=== PATIENT | male | born 1950 | race Caucasian/White ===

== ENCOUNTER → 2017-10-14 22:08 | Emergency (ER) | payer MEDICARE, OTHER ==
[2017-10-14 19:08] LABS: ADD MAN DIFF? NO
[2017-10-14 19:10] LABS: BASOPHIL # 0.1 10^3/ul (0.0-0.1); BASOPHILS % 0.6 % (0.0-2.0); EOSINOPHILS # 0.4 10^3/ul (0.0-0.5); EOSINOPHILS % 3.9 % (0.0-7.0); HEMATOCRIT 41.2 % (42.0-52.0); HEMOGLOBIN 14.3 g/dl (14.0-18.0); LYMPHOCYTES # 2.3 10^3/ul (0.8-2.9); LYMPHOCYTES % 24.8 % (15.0-51.0); MEAN CORPUSCULAR HEMOGLOBIN 33.2 pg (29.0-33.0); MEAN CORPUSCULAR HGB CONC 34.7 g/dl (32.0-37.0); MEAN CORPUSCULAR VOLUME 95.6 fl (82.0-101.0); MEAN PLATELET VOLUME 9.6 fl (7.4-10.4); MONOCYTE # 0.9 10^3/ul (0.3-0.9); NEUTROPHIL # 5.7 10^3/ul (1.6-7.5); NEUTROPHILS % 60.4 % (39.0-77.0); PLATELET COUNT 281 10^3/UL (140-415); RED BLOOD COUNT 4.31 10^6/ul (4.70-6.10)
[2017-10-14 19:10] LABS: WHITE BLOOD COUNT 9.4 10^3/ul (4.8-10.8)
[2017-10-14] MEDS: ONDANSETRON 4 MG INJ IV (19:26)
[2017-10-14] MEDS: LACTATED RINGER'S 1,000 ML IV (19:26)
[2017-10-14 19:37] LABS: ALANINE AMINOTRANSFERASE 26 IU/L (13-69); ALBUMIN 4.3 g/dl (3.3-4.9); ALBUMIN/GLOBULIN RATIO 1.43; ALKALINE PHOSPHATASE 57 IU/L (42-121); ANION GAP 11 (8-16); ASPARTATE AMINO TRANSFERASE 26 IU/L (15-46); BILIRUBIN,INDIRECT 0.7 mg/dl (0-1.1); BILIRUBIN,TOTAL 0.7 mg/dl (0.2-1.3); BLOOD UREA NITROGEN 16 mg/dl (7-20); CALCIUM 9.7 mg/dl (8.4-10.2); CARBON DIOXIDE 26 mmol/L (21-31); CHLORIDE 107 mmol/L (97-110); CREATININE 1.03 mg/dl (0.61-1.24); GLUCOSE 119 mg/dl (70-220); POTASSIUM 3.3 mmol/L (3.5-5.1); SODIUM 141 mmol/L (135-144); TOTAL PROTEIN 7.3 g/dl (6.1-8.1)
[2017-10-14 22:06] LABS: HEMOGLOBIN A1C 5.6 % (0-5.9)
[~2017-10-14 22:08] MED LIST: ACETAMINOPHEN 650 MG SUPP PR; ALBUTEROL/IPRATROPIUM (NEB) 3 ML AMP NEB; FAMOTIDINE 20 MG INJ IV; ONDANSETRON 4 MG INJ IV; POTASSIUM CHLORIDE 100 ML IVPB
== END | disposition left against medical advice (07) ==
DX: I61.8 Other nontraumatic intracerebral hemorrhage (principal); F17.210 Nicotine dependence, cigarettes, uncomplicated
CPT/HCPCS: 36415; 70553; 80053; 83036; 85025; 96374; 99284-25

== ENCOUNTER 2017-10-16 10:32 | Inpatient (IN) | payer MEDICARE, OTHER ==
[2017-10-16 11:29] LABS: WHITE BLOOD COUNT 9.2 10^3/ul (4.8-10.8)
[2017-10-16 11:29] LABS: ADD MAN DIFF? NO; HEMATOCRIT 42.2 % (42.0-52.0); HEMOGLOBIN 14.6 g/dl (14.0-18.0); MEAN CORPUSCULAR VOLUME 95.7 fl (82.0-101.0); RED BLOOD COUNT 4.41 10^6/ul (4.70-6.10)
[2017-10-16 11:30] LABS: BASOPHIL # 0.1 10^3/ul (0.0-0.1); BASOPHILS % 0.5 % (0.0-2.0); EOSINOPHILS # 0.3 10^3/ul (0.0-0.5); LYMPHOCYTES # 2.4 10^3/ul (0.8-2.9); LYMPHOCYTES % 26.4 % (15.0-51.0); MEAN CORPUSCULAR HEMOGLOBIN 33.1 pg (29.0-33.0); MEAN CORPUSCULAR HGB CONC 34.6 g/dl (32.0-37.0); MEAN PLATELET VOLUME 9.8 fl (7.4-10.4); MONOCYTE # 0.9 10^3/ul (0.3-0.9); MONOCYTES % 9.3 % (0.0-11.0); NEUTROPHIL # 5.6 10^3/ul (1.6-7.5); NEUTROPHILS % 60.6 % (39.0-77.0); PLATELET COUNT 280 10^3/UL (140-415); RED CELL DISTRIBUTION WIDTH 12.8 % (11.5-14.5)
[2017-10-16 11:48] LABS: ANION GAP 9 (8-16); BLOOD UREA NITROGEN 14 mg/dl (7-20); CALCIUM 9.5 mg/dl (8.4-10.2); CARBON DIOXIDE 28 mmol/L (21-31); CHLORIDE 107 mmol/L (97-110); CREATININE 0.79 mg/dl (0.61-1.24); GLUCOSE 86 mg/dl (70-220); POTASSIUM 3.9 mmol/L (3.5-5.1); SODIUM 140 mmol/L (135-144)
[2017-10-16 11:53] LABS: INR 0.97; PARTIAL THROMBOPLASTIN TIME 27.5 Sec (25.0-35.0)
[2017-10-16] MEDS ORDERED: ONDANSETRON 4 MG INJ IV ×2 (13:30→18:00)
[2017-10-16] MEDS: ACETAMINOPHEN 325 MG TAB PO ×2 (15:05→21:56)
[2017-10-16] MEDS ORDERED: NACL 0.9% 3 ML SYG IV (18:00)
[2017-10-16] MEDS ORDERED: morphine 2 MG INJ IV (18:00)
[2017-10-16] MEDS ORDERED: HYDROCODONE/APAP (5/325) TAB PO (18:00)
[2017-10-16] MEDS ORDERED: ZOLPIDEM 5 MG TAB PO (18:00)
[2017-10-16] MEDS ORDERED: DOCUSATE SODIUM 100 MG CAP PO (18:00)
[2017-10-16] MEDS: SOD CHLORIDE 0.9% 100 ML (20:28)
[2017-10-16] MEDS: IOHEXOL 100 ML (20:28)
[2017-10-17] MEDS: ACETAMINOPHEN 325 MG TAB PO (05:05)
== END 2017-10-17 09:30 | disposition home or self-care (01) | DRG 545 ==
LOC: 6WM 18:21 → E/R 10:32 → 6WM 13:18
DX: E85.4 Organ-limited amyloidosis (principal); I61.1 Nontraumatic intracerebral hemorrhage in hemisphere, cortical; I68.0 Cerebral amyloid angiopathy; F17.200 Nicotine dependence, unspecified, uncomplicated
CPT/HCPCS: 36415; 70450; 70496; 70553; 80048; 80053; 83036; 85025; 85610; 85730; 96374; 99284-25; 99285-25